=== PATIENT | female | born 1950 | race Caucasian/White ===

== ENCOUNTER 2019-06-11 06:05 | Inpatient (IN) | payer MEDICARE ==
[~2019-06-11] VITALS: Ht 167.6 cm; Wt 107.5 kg
[2019-06-11] MEDS ORDERED: sodium polystyrene sulfonate 15gm/60ml oral suspension PO ONE (07:40)
--- NOTE | 2019-06-11 08:08 | NUR ---
SPOKE TO JANELL SENIOR, SHE WANTS MORNING LABS DRAWN PRIOR TO ADMINISTERING KAEXYLATE AND SODIUM BICARB. PER JANELL, IF POTASSIUM IS LESS THAN 6 WE HOLD KAEXYLATE AND IF ABOVE 6 WE GIVE KAEXYLATE.
[2019-06-11 08:23] LABS: BASOPHILS # (AUTO) 0.1 X10'3 (0-0.2); BASOPHILS % (AUTO) 0.6 % (0-1); EOSINOPHILS # (AUTO) 0.2 X10'3 (0-0.9); EOSINOPHILS % (AUTO) 1.5 % (0-6); HEMATOCRIT 25.3 % (35.0-45.0); HEMOGLOBIN 8.1 g/dl (12.0-16.0); LYMPHOCYTES # (AUTO) 2.7 X10'3 (1.1-4.8); MEAN CORPUSCULAR HGB CONC 31.9 g/dL (33.0-36.5); MEAN CORPUSCULAR VOLUME 87.6 FL (78-98); MEAN PLATELET VOLUME 7.9 FL (7.4-10.4); MONOCYTES # (AUTO) 0.5 X10'3 (0-0.9); MONOCYTES % (AUTO) 4.5 % (2-12); NEUTROPHILS # (AUTO) 7.8 X10'3 (1.8-7.7); NEUTROPHILS % (AUTO) 69.4 % (42-75); PLATELET COUNT 260 X10'3 (140-440); RED BLOOD COUNT 2.89 X10'6 (4.20-5.60); WHITE BLOOD COUNT 11.2 X10'3 (4.5-11.0)
[2019-06-11] MEDS: sodium bicarbonate (8.4%) inj. 75 MEQ in dextrose 5% water 500ml 500 ML IV SCH ×2 (08:27→19:10)
[2019-06-11 08:38] LABS: ALANINE AMINOTRANSFERASE 18 U/L (12-78); ALBUMIN 2.7 G/DL (3.4-5.0); ALBUMIN/GLOBULIN RATIO 0.6 (1.1-1.5); ALKALINE PHOSPHATASE 82 IU/L (46-116); ANION GAP 19 (8-16); ASPARTATE AMINO TRANSFERASE 13 U/L (10-37); BILIRUBIN,TOTAL 0.3 MG/DL (0.1-1.0); BLOOD UREA NITROGEN 91 MG/DL (7-18); BUN/CREATININE RATIO 7.6 (6.6-38.0); CALCIUM 8.6 MG/DL (8.5-10.1); CHLORIDE 105 MMOL/L (99-107); CREATININE 11.91 MG/DL (0.40-0.90); GLUCOSE 82 MG/DL (70-104); MAGNESIUM 1.7 MG/DL (1.5-2.4); POTASSIUM 4.9 MMOL/L (3.5-5.1); SODIUM 139 MMOL/L (135-145); TOTAL CARBON DIOXIDE 15.5 MMOL/L (24-32); TOTAL PROTEIN 7.1 G/DL (6.4-8.2); eGFR 3 ML/MIN
[2019-06-11] MEDS ORDERED: diphenhydrAMINE 25mg capsule PO PRN (09:05)
[2019-06-11] MEDS ORDERED: METO-384 PO (09:54)
--- NOTE | 2019-06-11 09:56 | NUR ---
Pt rude and uncooperative with my attempts to get a med rec. Pt states she only takes one of the medications that she is prescribed because she "just doesnt care". Pt states Metaprolol is the only medication that makes her "half way feel good".
[2019-06-11 11:30] VITALS: BP 118/57
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
[2019-06-11] MEDS ORDERED: AMLO10TA13 PO (12:54)
[2019-06-11] MEDS ORDERED: APIX5TAB3 PO (12:54)
[2019-06-11] MEDS ORDERED: HYDR-4069 PO (12:54)
[2019-06-11] MEDS ORDERED: OMEP40CA13 PO (12:54)
--- NOTE | 2019-06-11 15:07 | NUR ---
Patient is noncompliant with allowing me to do admission questions. Patient keeps stating, "Too many questions, just leave me alone". Will attempt to do admission questions at a later time
--- NOTE | 2019-06-11 17:00 | NUR ---
Patient will not allow a MRSA swab, patient states "you aren't putting anything up my nose!!" Patient still will not allow me to ask her admission questions. Will pass this information to clinical data coordinator RN.
--- NOTE | 2019-06-11 18:27 | NUR ---
Problems reprioritized. Patient report given, questions answered & plan of care reviewed with BOB Glover.
--- NOTE | 2019-06-11 18:30 | NUR ---
Patient in room [facility]. I have received report from Sunni Mims and had the opportunity to ask questions and assume patient care.
[2019-06-11 19:00] VITALS: BP 163/94
[2019-06-11] MEDS: heparin, porcine 5000 units/ml vial SQ SCH (20:39)
[2019-06-12] VITALS (11 sets, daily range): BP systolic 91–190; BP diastolic 50–96
[2019-06-12] MEDS: sodium bicarbonate (8.4%) inj. 75 MEQ in dextrose 5% water 500ml 500 ML IV SCH ×2 (00:49→19:00)
--- NOTE | 2019-06-12 03:50 | NUR ---
Patient credit collections clerk light. Pt. stated to nurse that she was having SOB and chest pain. VS: ,124,20,162/83,97% RA. Went to get ekg machine and on return pt. refused stating that she need to go to the toilet to pee. Whilst in the bathroom, nurses discussing pt's condition and pt. yelled out "what are you all bitching about"? When patient fgot back into bed, EKG obtained reading " sinus tachycardia, other mares nomal EKG. After all this, patient then wants a cup of coffee.
[2019-06-12 05:24] LABS: BASOPHILS # (AUTO) 0.1 X10'3 (0-0.2); BASOPHILS % (AUTO) 0.5 % (0-1); EOSINOPHILS # (AUTO) 0.3 X10'3 (0-0.9); EOSINOPHILS % (AUTO) 2.9 % (0-6); HEMATOCRIT 22.8 % (35.0-45.0); HEMOGLOBIN 7.5 g/dl (12.0-16.0); LYMPHOCYTES # (AUTO) 3.3 X10'3 (1.1-4.8); LYMPHOCYTES % (AUTO) 27.9 % (21-51); MEAN CORPUSCULAR HEMOGLOBIN 28.4 PG (27.0-31.0); MEAN CORPUSCULAR HGB CONC 33.1 g/dL (33.0-36.5); MEAN CORPUSCULAR VOLUME 85.9 FL (78-98); MEAN PLATELET VOLUME 7.8 FL (7.4-10.4); MONOCYTES # (AUTO) 0.7 X10'3 (0-0.9); MONOCYTES % (AUTO) 5.7 % (2-12); NEUTROPHILS # (AUTO) 7.5 X10'3 (1.8-7.7); PLATELET COUNT 261 X10'3 (140-440); RED BLOOD COUNT 2.65 X10'6 (4.20-5.60); RED CELL DISTRIBUTION WIDTH 15.7 % (11.5-14.5); WHITE BLOOD COUNT 11.8 X10'3 (4.5-11.0)
[2019-06-12 05:56] LABS: ALANINE AMINOTRANSFERASE 15 U/L (12-78); ALBUMIN 2.4 G/DL (3.4-5.0); ALBUMIN/GLOBULIN RATIO 0.6 (1.1-1.5); ALKALINE PHOSPHATASE 82 IU/L (46-116); ANION GAP 15 (8-16); ASPARTATE AMINO TRANSFERASE 12 U/L (10-37); BILIRUBIN,TOTAL 0.2 MG/DL (0.1-1.0); BLOOD UREA NITROGEN 86 MG/DL (7-18); BUN/CREATININE RATIO 7.6 (6.6-38.0); CALCIUM 7.3 MG/DL (8.5-10.1); CHLORIDE 104 MMOL/L (99-107); GLUCOSE 104 MG/DL (70-104); MAGNESIUM 1.5 MG/DL (1.5-2.4); POTASSIUM 4.6 MMOL/L (3.5-5.1); SODIUM 138 MMOL/L (135-145); TOTAL CARBON DIOXIDE 18.9 MMOL/L (24-32); TOTAL PROTEIN 6.7 G/DL (6.4-8.2); eGFR 3 ML/MIN
[2019-06-12 06:01] LABS: PHOSPHORUS 9.3 MG/DL (2.3-4.5)
--- NOTE | 2019-06-12 06:30 | NUR ---
Report given to Anaya ROJAS
[2019-06-12] MEDS ORDERED: albumin (human) 25% 100ml IV 100 ML IV PRN (08:00)
[2019-06-12] MEDS ORDERED: epoetin 20,000 units/ml inj IV ONE (08:00)
[2019-06-12] MEDS ORDERED: heparin 1,000 units/ml 10ml inj HE ONE ×2 (08:00)
[2019-06-12] MEDS ORDERED: normal saline 1000ml 250 ML IV PRN (08:00)
--- NOTE | 2019-06-12 08:49 | NUR ---
Patient refused MRSA swab, patient states "NO" when requested to swab nares. Educated patient on reason for swab and she states "NO" again.
[2019-06-12] MEDS ORDERED: tPA-cathflo 2 MG/2 ml IV flush IVF ONE ×2 (09:05→09:30)
--- NOTE | 2019-06-12 09:58 | NUR ---
MD Nolen aware of pt.s phosphate level. See new orders. also aware pt. refused MRSA nasal swab this AM.
[2019-06-12] MEDS: calcium carbonate 500mg chew tablet PO SCH ×4 (10:33→22:54)
--- NOTE | 2019-06-12 10:42 | NUR ---
rear load truck driver here to examine TDC, states not viable, clots of blood have formed that cannot be removed. She states that she will inform MD Rao of this in ICU rounds as well as notify him that the pt's med req. needs to be addressed. Will follow up on this at a later time.
[2019-06-12] MEDS ORDERED: FLU VACC QS2019-20 36MOS UP/PF 60 MCG/0.5 ML SYRINGE IMVAC ONE (11:55)
[2019-06-12] MEDS ORDERED: pneumococcal 23-VAL P-sac vacc 25 mcg/0.5ml vial IMVAC ONE (11:55)
--- NOTE | 2019-06-12 12:24 | NUR ---
Pt. refusing to have tab alarm placed on her. pt. is impulsive. store clerk made aware.
--- NOTE | 2019-06-12 12:31 | NUR ---
Pt. refusing to have TDC placed. MD Nolen called and informed of the situation. Pt. remains NPO at this time. also made aware of tachycardic HR - 124 at 0800 and 119 and 1100. No new orders at this time and states he "will take care of it " when he comes up to talk to the patient about the TDC.
--- NOTE | 2019-06-12 12:43 | NUR ---
MD Nolen in to speak with pt. about the risks and benefits of placing a new TDC. Pt. does agree to procedure. Tamanna also addressed med req. - faxed to pharmacy.
[2019-06-12] MEDS ORDERED: heparin 1,000 units/ml 10ml inj ICATH ONE (12:55)
[2019-06-12] MEDS ORDERED: LIDOcaine 1%/PF 5ML 10 MG/ML VIAL SQ ONE (12:55)
[2019-06-12] MEDS ORDERED: fentaNYL/PF 50MCG/1 ML 2ML syringe IV PRN (12:55)
[2019-06-12] MEDS ORDERED: fentaNYL/PF 50MCG/1 ML 2ML syringe ONE ×2 (12:59→14:02)
[2019-06-12] MEDS ORDERED: heparin sodium, porcine/PF 100unit/ml 5ML syringe ONE (12:59)
[2019-06-12] MEDS ORDERED: LIDOcaine 1%/PF 5ML 10 MG/ML VIAL ONE ×2 (12:59→14:06)
[2019-06-12] MEDS ORDERED: heparin 1,000unit/ml 10ml vial 10 ML ONE (13:01)
--- NOTE | 2019-06-12 13:21 | NUR ---
Pt. taken off floor to angio/IR to have TDC placed.
[2019-06-12] MEDS ORDERED: diphenhydrAMINE 50 mg/ml inj ONE (13:40)
[2019-06-12] MEDS: metoprolol succinate 25mg (24-HOUR) SR. Tablet PO SCH (14:41)
--- NOTE | 2019-06-12 15:00 | NUR ---
Pt. returned to floor with new TDC, dialysis nurse made aware. She states that she is not sure if pt. will be able to receive dialysis today r/t pt. census. Pt. placed on post op vitals.
--- NOTE | 2019-06-12 16:18 | NUR ---
Spoke to MD Nolen about SBP of 190. Ordered to resume hydralazine order on med req. Verified that pt. will receive dialysis today.
--- NOTE | 2019-06-12 18:02 | NUR ---
Problems reprioritized. Patient report given, questions answered & plan of care reviewed with Tierney barber RN. Dialysis in room with pt.
--- NOTE | 2019-06-12 18:30 | NUR ---
Patient in room [facility]. I have received report from LESLEY ROJSA and had the opportunity to ask questions and assume patient care.
[2019-06-12] MEDS: hyDRALAzine 10mg tablet PO SCH (22:53)
[2019-06-12] MEDS: heparin, porcine 5000 units/ml vial SQ SCH (22:59)
[2019-06-13 00:31] VITALS: BP 168/91
[2019-06-13] MEDS: sodium bicarbonate (8.4%) inj. 75 MEQ in dextrose 5% water 500ml 500 ML IV SCH (01:51)
[2019-06-13] MEDS: hyDRALAzine 10mg tablet PO SCH ×4 (02:00→21:49)
--- NOTE | 2019-06-13 06:15 | NUR ---
Problems reprioritized. Patient report given, questions answered & plan of care reviewed with LESLEY ROJAS.
[2019-06-13 07:00] VITALS: BP 158/80
[2019-06-13] MEDS ORDERED: epoetin 20,000 units/ml inj IV ONE (08:00)
[2019-06-13] MEDS ORDERED: normal saline 1000ml 250 ML IV PRN (08:00)
[2019-06-13] MEDS ORDERED: albumin (human) 25% 100ml IV 100 ML IV PRN (08:00)
[2019-06-13] MEDS ORDERED: heparin 1,000 units/ml 10ml inj HE ONE ×2 (08:00)
[2019-06-13] MEDS: pantoprazole 40mg Tablet.DR PO SCH (08:25)
[2019-06-13] MEDS: metoprolol succinate 25mg (24-HOUR) SR. Tablet PO SCH (08:25)
[2019-06-13] MEDS: calcium carbonate 500mg chew tablet PO SCH ×5 (08:26→21:49)
[2019-06-13] MEDS: heparin, porcine 5000 units/ml vial SQ SCH ×2 (08:34→21:50)
[2019-06-13] MEDS ORDERED: HYDROcodone/acetaminophen 10/325mg tab PO ONE (08:50)
[2019-06-13 09:32] LABS: BASOPHILS # (AUTO) 0.1 X10'3 (0-0.2); BASOPHILS % (AUTO) 0.5 % (0-1); EOSINOPHILS # (AUTO) 0.2 X10'3 (0-0.9); EOSINOPHILS % (AUTO) 2.1 % (0-6); HEMATOCRIT 24.9 % (35.0-45.0); HEMOGLOBIN 8.3 g/dl (12.0-16.0); LYMPHOCYTES # (AUTO) 3.3 X10'3 (1.1-4.8); LYMPHOCYTES % (AUTO) 28.6 % (21-51); MEAN CORPUSCULAR HEMOGLOBIN 28.4 PG (27.0-31.0); MEAN CORPUSCULAR HGB CONC 33.3 g/dL (33.0-36.5); MEAN CORPUSCULAR VOLUME 85.2 FL (78-98); MEAN PLATELET VOLUME 8.1 FL (7.4-10.4); MONOCYTES # (AUTO) 0.7 X10'3 (0-0.9); MONOCYTES % (AUTO) 6.4 % (2-12); NEUTROPHILS # (AUTO) 7.2 X10'3 (1.8-7.7); NEUTROPHILS % (AUTO) 62.4 % (42-75); PLATELET COUNT 263 X10'3 (140-440); RED BLOOD COUNT 2.93 X10'6 (4.20-5.60); RED CELL DISTRIBUTION WIDTH 15.3 % (11.5-14.5); WHITE BLOOD COUNT 11.6 X10'3 (4.5-11.0)
[2019-06-13 09:44] LABS: ALANINE AMINOTRANSFERASE 17 U/L (12-78); ALBUMIN 2.5 G/DL (3.4-5.0); ALBUMIN/GLOBULIN RATIO 0.6 (1.1-1.5); ALKALINE PHOSPHATASE 72 IU/L (46-116); ANION GAP 9 (8-16); ASPARTATE AMINO TRANSFERASE 17 U/L (10-37); BILIRUBIN,TOTAL 0.4 MG/DL (0.1-1.0); BLOOD UREA NITROGEN 34 MG/DL (7-18); BUN/CREATININE RATIO 5.9 (6.6-38.0); CALCIUM 8.1 MG/DL (8.5-10.1); CHLORIDE 100 MMOL/L (99-107); CREATININE 5.76 MG/DL (0.40-0.90); GLUCOSE 96 MG/DL (70-104); MAGNESIUM 1.5 MG/DL (1.5-2.4); PHOSPHORUS 4.5 MG/DL (2.3-4.5); POTASSIUM 3.9 MMOL/L (3.5-5.1); SODIUM 136 MMOL/L (135-145); TOTAL CARBON DIOXIDE 27.2 MMOL/L (24-32); eGFR 7 ML/MIN
[2019-06-13 11:00] VITALS: BP 161/76
--- NOTE | 2019-06-13 15:29 | NUR ---
Called MD Rao- he is aware pt. has had a low urine output of 200ml at this time in this nurse's shift.
--- NOTE | 2019-06-13 18:35 | NUR ---
Problems reprioritized. Patient report given, questions answered & plan of care reviewed with Tierney barber RN.
--- NOTE | 2019-06-13 18:40 | NUR ---
Patient in room [facility]. I have received report from LESLEY ROJAS and had the opportunity to ask questions and assume patient care.
[2019-06-13 20:00] VITALS: BP 170/86
[2019-06-14] VITALS: BP 184/84
[2019-06-14] MEDS: hyDRALAzine 10mg tablet PO SCH ×4 (02:14→20:39)
[2019-06-14 03:35] VITALS: BP 151/83
--- NOTE | 2019-06-14 06:32 | NUR ---
Problems reprioritized. Patient report given, questions answered & plan of care reviewed with CARMEN ROJAS.
--- NOTE | 2019-06-14 06:33 | NUR ---
Patient in room [facility]. I have received report from BOB Aaron and had the opportunity to ask questions and assume patient care.
[2019-06-14 06:39] LABS: BASOPHILS % (AUTO) 0.4 % (0-1); EOSINOPHILS # (AUTO) 0.3 X10'3 (0-0.9); EOSINOPHILS % (AUTO) 2.6 % (0-6); HEMATOCRIT 24.8 % (35.0-45.0); HEMOGLOBIN 8.2 g/dl (12.0-16.0); LYMPHOCYTES # (AUTO) 2.6 X10'3 (1.1-4.8); LYMPHOCYTES % (AUTO) 22.7 % (21-51); MEAN CORPUSCULAR HEMOGLOBIN 28.7 PG (27.0-31.0); MEAN CORPUSCULAR HGB CONC 33.1 g/dL (33.0-36.5); MEAN CORPUSCULAR VOLUME 86.7 FL (78-98); MEAN PLATELET VOLUME 8.5 FL (7.4-10.4); MONOCYTES # (AUTO) 0.7 X10'3 (0-0.9); MONOCYTES % (AUTO) 6.4 % (2-12); NEUTROPHILS # (AUTO) 7.7 X10'3 (1.8-7.7); NEUTROPHILS % (AUTO) 67.9 % (42-75); PLATELET COUNT 249 X10'3 (140-440); RED BLOOD COUNT 2.86 X10'6 (4.20-5.60); RED CELL DISTRIBUTION WIDTH 15.5 % (11.5-14.5); WHITE BLOOD COUNT 11.3 X10'3 (4.5-11.0)
[2019-06-14 06:49] LABS: ALANINE AMINOTRANSFERASE 16 U/L (12-78); ALBUMIN 2.6 G/DL (3.4-5.0); ALBUMIN/GLOBULIN RATIO 0.6 (1.1-1.5); ALKALINE PHOSPHATASE 73 IU/L (46-116); ANION GAP 12 (8-16); ASPARTATE AMINO TRANSFERASE 16 U/L (10-37); BILIRUBIN,TOTAL 0.3 MG/DL (0.1-1.0); BLOOD UREA NITROGEN 40 MG/DL (7-18); BUN/CREATININE RATIO 5.7 (6.6-38.0); CALCIUM 8.3 MG/DL (8.5-10.1); CHLORIDE 98 MMOL/L (99-107); CREATININE 7.05 MG/DL (0.40-0.90); GLUCOSE 96 MG/DL (70-104); MAGNESIUM 1.5 MG/DL (1.5-2.4); PHOSPHORUS 5.1 MG/DL (2.3-4.5); POTASSIUM 3.8 MMOL/L (3.5-5.1); SODIUM 135 MMOL/L (135-145); TOTAL CARBON DIOXIDE 25.3 MMOL/L (24-32); TOTAL PROTEIN 7.1 G/DL (6.4-8.2); eGFR 6 ML/MIN
[2019-06-14 07:00] VITALS: BP 143/90
[2019-06-14] MEDS: calcium carbonate 500mg chew tablet PO SCH ×5 (07:36→21:30)
[2019-06-14] MEDS: pantoprazole 40mg Tablet.DR PO SCH (07:43)
[2019-06-14] MEDS: metoprolol succinate 25mg (24-HOUR) SR. Tablet PO SCH (07:44)
[2019-06-14] MEDS: heparin, porcine 5000 units/ml vial SQ SCH (07:45)
[2019-06-14] MEDS ORDERED: heparin 1,000 units/ml 10ml inj HE ONE ×2 (08:00)
[2019-06-14] MEDS ORDERED: albumin (human) 25% 100ml IV 100 ML IV PRN (08:00)
[2019-06-14] MEDS ORDERED: epoetin 20,000 units/ml inj IV ONE (08:00)
[2019-06-14] MEDS ORDERED: normal saline 1000ml 250 ML IV PRN (08:00)
[2019-06-14] MEDS: acetaminophen 325mg tablet PO PRN ×3 (08:14→20:40)
[2019-06-14] MEDS ORDERED: HYDROcodone/acetaminophen 10/325mg tab PO ONE (10:05)
[2019-06-14 11:30] VITALS: BP 193/87
[2019-06-14 18:15] VITALS: BP 155/80
--- NOTE | 2019-06-14 18:41 | NUR ---
Problems reprioritized. Patient report given, questions answered & plan of care reviewed with BOB Andrews.
--- NOTE | 2019-06-14 18:49 | NUR ---
Patient in room [facility]. I have received report from BOB Cat and had the opportunity to ask questions and assume patient care.
[2019-06-14] MEDS: apixaban 5mg tablet PO SCH (20:39)
--- NOTE | 2019-06-15 00:33 | NUR ---
Pt declined midnight vital signs. Will obtain BP prior to med administration at 0200.
[2019-06-15] MEDS: hyDRALAzine 10mg tablet PO SCH ×2 (01:06→07:07)
[2019-06-15 01:09] VITALS: BP 165/92
--- NOTE | 2019-06-15 06:30 | NUR ---
Patient in room [facility]. I have received report from Juliana ROJAS and had the opportunity to ask questions and assume patient care.
--- NOTE | 2019-06-15 06:37 | NUR ---
Problems reprioritized. Patient report given, questions answered & plan of care reviewed with BOB Bundy.
[2019-06-15 07:00] VITALS: BP 184/81
[2019-06-15] MEDS: metoprolol succinate 25mg (24-HOUR) SR. Tablet PO SCH (07:08)
[2019-06-15] MEDS: acetaminophen 325mg tablet PO PRN ×2 (07:08→13:16)
[2019-06-15] MEDS: apixaban 5mg tablet PO SCH (07:20)
[2019-06-15] MEDS: calcium carbonate 500mg chew tablet PO SCH (07:36)
[2019-06-15] MEDS ORDERED: normal saline 1000ml 250 ML IV PRN (08:00)
[2019-06-15] MEDS ORDERED: epoetin 20,000 units/ml inj IV ONE (08:00)
[2019-06-15] MEDS ORDERED: albumin (human) 25% 100ml IV 100 ML IV PRN (08:00)
[2019-06-15] MEDS ORDERED: heparin 1,000 units/ml 10ml inj HE ONE ×3 (08:00→14:10)
[2019-06-15] MEDS: pantoprazole 40mg Tablet.DR PO SCH (08:08)
[2019-06-15 09:57] LABS: BASOPHILS % (AUTO) 0.5 % (0-1); EOSINOPHILS # (AUTO) 0.4 X10'3 (0-0.9); EOSINOPHILS % (AUTO) 3.9 % (0-6); HEMATOCRIT 24.2 % (35.0-45.0); LYMPHOCYTES # (AUTO) 2.5 X10'3 (1.1-4.8); LYMPHOCYTES % (AUTO) 24.6 % (21-51); MEAN CORPUSCULAR HEMOGLOBIN 28.8 PG (27.0-31.0); MEAN CORPUSCULAR HGB CONC 32.8 g/dL (33.0-36.5); MEAN CORPUSCULAR VOLUME 87.8 FL (78-98); MEAN PLATELET VOLUME 8.7 FL (7.4-10.4); MONOCYTES # (AUTO) 0.7 X10'3 (0-0.9); NEUTROPHILS # (AUTO) 6.6 X10'3 (1.8-7.7); PLATELET COUNT 242 X10'3 (140-440); RED BLOOD COUNT 2.76 X10'6 (4.20-5.60); RED CELL DISTRIBUTION WIDTH 15.2 % (11.5-14.5); WHITE BLOOD COUNT 10.3 X10'3 (4.5-11.0)
[2019-06-15 10:13] LABS: ALANINE AMINOTRANSFERASE 18 U/L (12-78); ALBUMIN 2.5 G/DL (3.4-5.0); ALBUMIN/GLOBULIN RATIO 0.6 (1.1-1.5); ALKALINE PHOSPHATASE 70 IU/L (46-116); ANION GAP 13 (8-16); ASPARTATE AMINO TRANSFERASE 19 U/L (10-37); BILIRUBIN,TOTAL 0.3 MG/DL (0.1-1.0); BLOOD UREA NITROGEN 46 MG/DL (7-18); BUN/CREATININE RATIO 5.8 (6.6-38.0); CALCIUM 7.8 MG/DL (8.5-10.1); CHLORIDE 98 MMOL/L (99-107); CREATININE 7.87 MG/DL (0.40-0.90); GLUCOSE 122 MG/DL (70-104); MAGNESIUM 1.4 MG/DL (1.5-2.4); PHOSPHORUS 5.9 MG/DL (2.3-4.5); POTASSIUM 3.9 MMOL/L (3.5-5.1); SODIUM 133 MMOL/L (135-145); TOTAL CARBON DIOXIDE 22.4 MMOL/L (24-32); TOTAL PROTEIN 6.8 G/DL (6.4-8.2); eGFR 5 ML/MIN
[2019-06-15] MEDS ORDERED: heparin 1,000unit/ml 10ml vial 10 ML IV ONE (10:48)
[2019-06-15 11:00] VITALS: BP 101/65
--- NOTE | 2019-06-15 16:24 | NUR ---
Per Dr Nolen, a plan needs to be set up for dialysis for discharge. I have called [facility]/dialysis. [facility] in case mgt will work on establishing patient. Fax number/phone given to meliton for referral. Hep panel/chest x-ray done for dialysis approval. In case of emergent need for dialysis while waiting for acceptance the clinic suggest patient goes through [facility] for dialysis to be dialyzed and referred to their clinic. I have fully educated patient. She says she has done that before and says she understands the process.
--- NOTE | 2019-06-15 18:10 | NUR ---
Pt's friend came to take her home. The pt had nurse give the friend d/c instructions and info on Dialysis appts since the friend will be helping her get to her dialysis. Nurse called and left the friends name and number for Case Management who is setting up the pt for dialysis. All belongings accounted for. The patients home medications were brought to pt from pharmacy and pt stated they were all there. She has remained stable. all discharge instructions given to the pt and her friend. Both stated understanding and agreed. she was taken by wheelchair to private vehicle. Her friends name and number is Gloria Montoya [facility]
[2019-06-17 11:25] LABS: HBSAG SCREEN Negative (Negative); HEP B CORE AB, TOT Negative (Negative)
== END 2019-06-15 18:05 | disposition home or self-care (01) | DRG 314 ==
LOC: ER 06:06 → ED HOLD 09:24 → SUR 3N 11:14
PROC: 0JH63XZ Insertion of Tunneled Vascular Access Device into Chest Subcutaneous Tissue and Fascia, Percutaneous Approach (ICD-10-PCS; principal; 2019-06-12)
PROC: 02H633Z Insertion of Infusion Device into Right Atrium, Percutaneous Approach (ICD-10-PCS; 2019-06-12)
PROC: B548ZZA Ultrasonography of Superior Vena Cava, Guidance (ICD-10-PCS; 2019-06-12)
PROC: 0JPV3XZ Removal of Tunneled Vascular Access Device from Upper Extremity Subcutaneous Tissue and Fascia, Percutaneous Approach (ICD-10-PCS; 2019-06-12)
PROC: 5A1D70Z Performance of Urinary Filtration, Intermittent, Less than 6 Hours Per Day (ICD-10-PCS; 2019-06-12)
PROC: 5A1D70Z Performance of Urinary Filtration, Intermittent, Less than 6 Hours Per Day (ICD-10-PCS; 2019-06-15)
DX: T82.868A Thrombosis due to vascular prosthetic devices, implants and grafts, initial encounter (principal); N18.6 End stage renal disease; G93.40 Encephalopathy, unspecified; I12.0 Hypertensive chronic kidney disease with stage 5 chronic kidney disease or end stage renal disease; E87.2 Acidosis; E87.5 Hyperkalemia; K21.9 Gastro-esophageal reflux disease without esophagitis; Y82.8 Other medical devices associated with adverse incidents; M79.604 Pain in right leg; Z99.2 Dependence on renal dialysis; Z79.01 Long term (current) use of anticoagulants; Z91.14 Patient's other noncompliance with medication regimen; Z28.21 Immunization not carried out because of patient refusal; Z88.8 Allergy status to other drugs, medicaments and biological substances; Z91.041 Radiographic dye allergy status; Z79.899 Other long term (current) drug therapy; Z95.5 Presence of coronary angioplasty implant and graft; Y92.89 Other specified places as the place of occurrence of the external cause
CPT/HCPCS: 36415; 36558; 36589; 71045; 76937; 77001; 80053; 83735; 84100; 85025; 86704; 86706; 87340; 93005; 99285; A9270; C1750; C1769; C1894; G0257; G0378; J1200; J1642; J1644; J2150; J2997; J3010; Q0163; Q2037; Q4081